=== PATIENT | male | born 1970 | race Caucasian/White ===

== ENCOUNTER 2017-02-13 02:29 | Emergency (ER) | payer MEDICAID ==
[~2017-02-13] VITALS: Ht 170.2 cm; Wt 90.5 kg
[2017-02-13 02:37] VITALS: Ht 170.2 cm; Wt 90.5 kg
[2017-02-13] MEDS ORDERED: ALBUTEROL 0.083% (NEB) 2.5 MG/3 ML AMP HHN STA (04:11)
[2017-02-13] MEDS ORDERED: IPRATROPIUM (NEB) 0.5 MG/2.5 ML AMP HHN ONE (04:30)
[2017-02-13] MEDS ORDERED: DEXAMETHASONE 10 MG/ML 1 ML INJ IM ONE (04:30)
[2017-02-13] MEDS ORDERED: DIPHENHYDRAMINE 50 MG INJ IM ONE (04:30)
--- NOTE | 2017-02-13 04:53 | ERD ---
ER Documentation Chief Complaint Date/Time DATE: 02/13/17 TIME: 04:49 Chief Complaint sore throat and cough x 1 day HPI This patient is a 46-year-old male presenting to the emergency department with complaints of cough and sore throat for 1 day. Symptoms are worsening. Additionally the patient complains of rash and some mild shortness of breath and wheezing after taking a first dose of Tamiflu earlier this evening. He denies chest pain, respiratory distress, significant fever, nausea, vomiting, diarrhea, or other symptoms. Symptoms are currently mild in severity. ROS All systems reviewed and are negative except as per history of present illness. Medications Home Meds Active Scripts Ibuprofen* (Motrin*) 600 Mg Tab, 600 MG PO Q6, #30 TAB Prov:PAU VELAZQUEZ PA-C 02/13/17 Prednisone* (Prednisone*) 20 Mg Tab, 40 MG PO DAILY for 4 Days, #8 TAB Prov:PAU VELAZQUEZ PA-C 02/13/17 Diphenhydramine Hcl* (Benadryl*) 25 Mg Cap, 25 MG PO Q6, #30 CAP Prov:PAU VELAZQUEZ PA-C 02/13/17 Allergies Allergies: Coded Allergies: No Known Allergy (Unverified , 05/28/12) PMhx/Soc History of Surgery: No Anesthesia Reaction: No Hx Neurological Disorder: No Hx Respiratory Disorders: No Hx Cardiac Disorders: No Hx Psychiatric Problems: No Hx Miscellaneous Medical Probl: No Hx Alcohol Use: Yes (OCCASIONAL) Hx Substance Use: No Hx Tobacco Use: Yes (DAILY) Smoking Status: Current every day smoker Physical Exam Vitals Vital Signs Date Time Temp Pulse Resp B/P Pulse Ox O2 Delivery O2 Flow Rate FiO2 02/13/17 05:12 100.9 02/13/17 04:21 106 18 97 21 02/13/17 02:37 99.6 111 18 145/99 95 Physical Exam Const: Nontoxic, well-appearing male in no acute distress. Head: Atraumatic Eyes: Normal Conjunctiva ENT: Normal External Ears, Nose and Mouth. There is erythema to the posterior pharynx but no tonsillar hypertrophy, exudate, or swelling. The airway is clear. Neck: Full range of motion..~ No meningismus. Resp: Shallow inspiratory effort. Mild rhonchi noted to bilateral upper lung ely. No definite wheezing. No crackles noted. Cardio: Regular rate and rhythm, no murmurs Abd: Soft, non tender, non distended. Normal bowel sounds Skin: There is a mild macular papular rash scattered to the bilateral upper extremities. Back: No midline or flank tenderness Ext: No cyanosis, or edema Neur: Awake and alert Psych: Normal Mood and Affect Results 24 hrs Current Medications Medications (Trade) Dose Ordered Sig/Maryann Route PRN Reason Start Time Stop Time Status Last Admin Dose Admin Albuterol (Proventil 0.083% (Neb)) 5 mg ONCE STAT HHN 02/13/17 04:11 02/13/17 04:14 DC 02/13/17 04:21 Ipratropium [place] (Atrovent 0.02% (Neb)) 0.5 mg ONCE ONCE HHN 02/13/17 04:30 02/13/17 04:31 DC 02/13/17 04:21 Dexamethasone (Decadron) 10 mg ONCE ONCE IM 02/13/17 04:30 02/13/17 04:31 DC 02/13/17 04:21 Diphenhydramine HCl (Benadryl) 25 mg ONCE ONCE IM 02/13/17 04:30 02/13/17 04:31 DC 02/13/17 04:21 Ibuprofen (Motrin) 600 mg ONCE ONCE PO 02/13/17 05:30 02/13/17 05:31 DC 02/13/17 05:23 [place] [id number] Radiology Main Line: [phone] DIAGNOSTIC IMAGING REPORT Patient: BRANDON GUTIERREZ : 1970 Age: 46 Sex: M MR #: [id number] DOS: 02/13/17 0000 Ordering MD: PAU VELAZQUEZ PA-C Location: [facility] Room/Bed: PROCEDURE: Chest. CLINICAL INDICATION: Cough. TECHNIQUE: Single frontal view of the chest was obtained. COMPARISON: None. FINDINGS: The cardiac silhouette is within normal limits. The aortic arch is unremarkable. There is no focal consolidation, vascular congestion or pleural effusion. There is no pneumothorax. IMPRESSION: No evidence for active cardiopulmonary disease. .Sam Wen MD, MD Date Time Electronically viewed and signed by .Sam Wen MD, MD on 02/13/2017 05:02 .T/ CC: PAU VELAZQUEZ PA-C Procedures/MDM 46-year-old male presents to the emergency department with complaints of rash, sore throat, shortness of breath after taking Tamiflu earlier today. On physical examination the patient does have shallow inspiratory effort and pulse ox is 95% on room air. The patient is showing no signs of acute respiratory distress. There are no retractions or cyanosis noted. Chest x-ray showed no abnormalities. The patient improved in the emergency department after IM Benadryl, IM Decadron, and medication nebulizer. The patient's primary diagnosis is shortness of breath. Secondary diagnosis is rash. Close follow- up with primary care physician was advised. Strict ER return precautions were discussed. The patient was stable for outpatient management with a prescription for prednisone, ibuprofen, and diphenhydramine. Departure Diagnosis: Primary Impression: Shortness of breath Additional Impression: Rash and nonspecific skin eruption Condition: Fair PAU VELAZQUEZ PA-C Feb 13, 2017 04:53
--- NOTE | 2017-02-13 05:03 | RADRPT ---
PROCEDURE: Chest. CLINICAL INDICATION: Cough. TECHNIQUE: Single frontal view of the chest was obtained. COMPARISON: None. FINDINGS: The cardiac silhouette is within normal limits. The aortic arch is unremarkable. There is no focal consolidation, vascular congestion or pleural effusion. There is no pneumothorax. IMPRESSION: No evidence for active cardiopulmonary disease. .Sam Wen MD, MD Date Time Electronically viewed and signed by .Sam Wen MD, on 02/13/2017 05:02 .T/
[2017-02-13 05:12] VITALS: TEMP 100.9
[2017-02-13] MEDS ORDERED: IBUPROFEN 600 MG TAB PO ONE (05:30)
[2017-02-13] MEDS ORDERED: IBUP-1542 PO (05:35)
[2017-02-13] MEDS ORDERED: BEN25 PO (05:35)
[2017-02-13] MEDS ORDERED: PRED20TA PO (05:35)
== END 2017-02-13 05:54 | disposition home or self-care (01) ==
LOC: FTE 02:29
DX: R06.02 Shortness of breath (principal); R21 Rash and other nonspecific skin eruption; F17.210 Nicotine dependence, cigarettes, uncomplicated
CPT/HCPCS: 71010; 94664; 96372; J1100; J1200; Z7502; Z7610

== ENCOUNTER 2017-05-22 23:19 | Emergency (ER) | payer MEDICAID ==
[~2017-05-22] VITALS: Ht 170.2 cm; Wt 83.0 kg
[~2017-05-22 23:19] MED LIST: BEN25 PO; IBUP-1542 PO; PRED20TA PO
[2017-05-22 23:28] VITALS: Ht 170.2 cm; Wt 83.0 kg
[2017-05-23] MEDS ORDERED: BEN50 PO (02:35)
[2017-05-23] MEDS ORDERED: AZIT250T94 PO (02:35)
[2017-05-23 02:43] VITALS: PULSE 79; RESP 18
--- NOTE | 2017-05-23 03:33 | ERD ---
ER Documentation Chief Complaint Date/Time DATE: 05/23/17 TIME: 03:31 Chief Complaint PT reports hivews after taking amoxicillin HPI 46-year-old male presents to emergency department for complaints of rash all over the body and itching after taking amoxicillin today. Patient was being treated for acute bacterial pharyngitis with amoxicillin. Patient does not have any lip swelling, tongue swelling or stridor. Patient does not have any shortness of breath or wheezing. Patient is complaining of sore throat burning pain 4/10 scale, as was upon swallowing. Patient denies any stridor. ROS All systems reviewed and are negative except as per history of present illness. Medications Home Meds Active Scripts Diphenhydramine Hcl* (Benadryl*) 50 Mg Cap, 50 MG PO Q6H Y for ITCHING/RASH, # 30 CAP Prov:YIMI GREER NP 05/23/17 Azithromycin* (Zithromax*) 250 Mg Tablet, 250 MG PO .ZPACK DIRECTED, #6 TAB TAKE 500 MG (2 TABS) THE FIRST DAY THEN 250 MG (1 TAB) DAYS 2-5 Prov:YIMI GREER NP 05/23/17 Ibuprofen* (Motrin*) 600 Mg Tab, 600 MG PO Q6, #30 TAB Prov:PAU VELAZQUEZ PA-C 02/13/17 Prednisone* (Prednisone*) 20 Mg Tab, 40 MG PO DAILY for 4 Days, #8 TAB Prov:PAU VELAZQUEZ PA-C 17 Diphenhydramine Hcl* (Benadryl*) 25 Mg Cap, 25 MG PO Q6, #30 CAP Prov:PAU VELAZQUEZ PA-C 02/13/17 Allergies Allergies: Coded Allergies: No Known Allergy (Unverified , 05/28/12) PMhx/Soc Medical and Surgical Hx: pt denies Medical Hx, pt denies Surgical Hx History of Surgery: No Anesthesia Reaction: No Hx Neurological Disorder: No Hx Respiratory Disorders: No Hx Cardiac Disorders: No Hx Psychiatric Problems: No Hx Miscellaneous Medical Probl: No Hx Alcohol Use: Yes (OCCASIONAL) Hx Substance Use: No Hx Tobacco Use: Yes (DAILY) Smoking Status: Current every day smoker FmHx Family History: No coronary disease, No diabetes, No other Physical Exam Vitals Vital Signs Date Time Temp Pulse Resp B/P Pulse Ox O2 Delivery O2 Flow Rate FiO2 05/23/17 02:43 79 18 99 Room Air 05/22/17 23:28 99.1 119 18 128/83 96 Physical Exam GENERAL: The patient is well developed and appropriate for usual state of health, in no apparent distress. HEENT: Atraumatic. Ears: Normal tympanic membrane, no erythema or bulging. No ear canal swelling. No ear discharge. Nose: normal nasal turbinates, no erythema or swelling. Normal nasal discharge. Throat: oropharynx e erythematous with tonsillar swelling and tonsillar exudates noted. No lymphadenopathy. CHEST: Clear to auscultation bilaterally. There are no rales, wheezes or rhonchi. HEART: Regular rate and rhythm. No murmurs, clicks, rubs or gallops. No S3 or S4. ABDOMEN: Soft, nontender and nondistended. Good bowel sounds. No rebound or guarding. No gross peritonitis. No gross organomegaly or masses. No Lainez sign or McBurney point tenderness. BACK: No midline or flank tenderness. EXTREMITIES: Equal pulses bilaterally. There is no peripheral clubbing, cyanosis or edema. No focal swelling or erythema. Full range of motion. Grossly neurovascularly intact. NEURO: Alert and oriented. Cranial nerves 2-12 intact. Motor strength in all 4 extremities with 5/5 strength. Sensation grossly intact. Normal speech and gait. SKIN: There is no apparent rash or petechia. The skin is warm and dry. HEMATOLOGIC AND LYMPHATIC: There is no evidence of excessive bruising or lymphedema. No gross cervical, axillary, or inguinal lymphadenopathy. Procedures/MDM Medical decision making: Patient symptoms is likely consistent with acute bacterial pharyngitis, most likely strep throat. Low suspicion for peritonsillar abscess, mononucleosis, no symptoms of epiglottitis, laryngitis. No oral airway obstruction noted. No symptoms of sepsis at this time. Patient appears well and is hemodynamically stable. Patient was given for azithromycin is advised to follow-up with primary care doctor in 2-3 days for reevaluation of symptoms. Patient is advised to do salt water gargles. Patient is advised to return to emergency department for worsening symptoms. For his hives, patient was given Benadryl, was advised to stop amoxicillin. Disposition: Home. Stable. Disclaimer: Inadvertent spelling and grammatical errors are likely due to EHR/ dictation software use and do not reflect on the overall quality of patient care. Also, please note that the electronic time recorded on this note does not necessarily reflect the actual time of the patient encounter. Departure Diagnosis: Primary Impression: Acute bacterial pharyngitis Additional Impression: Hives Condition: Stable Patient Instructions: YIMI Quach NP May 23, 2017 03:33
== END 2017-05-23 02:43 | disposition home or self-care (01) ==
LOC: FTE 23:19
DX: J02.9 Acute pharyngitis, unspecified (principal); L50.9 Urticaria, unspecified; F17.210 Nicotine dependence, cigarettes, uncomplicated
CPT/HCPCS: 99283

== ENCOUNTER 2017-08-06 17:20 | Emergency (ER) | payer MEDICAID ==
[~2017-08-06] VITALS: Wt 93.6 kg
[~2017-08-06 17:20] MED LIST changes: +AZIT250T94 PO; +BEN50 PO
[2017-08-06] MEDS ORDERED: KETOROLAC 30 MG INJ IM STA (18:15)
[2017-08-06 18:24] LABS: URINE BLOOD (Dip) POC Negative (NEGATIVE)
--- NOTE | 2017-08-06 19:38 | ERD ---
ER Documentation Chief Complaint Chief Complaint BACK PAIN HPI This a 47-year-old male who presents emergency department today complaining of back pain for the past 4 days. 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 States that he has had back pain one time in the past. States he has taken Tylenol and ibuprofen with limited relief in symptoms. Denies any fevers or chills, dysuria or hematuria. Denies any loss of bowel or bladder control. Denies any specific trauma. ROS All systems reviewed and are negative except as per history of present illness. Medications Home Meds Active Scripts Cyclobenzaprine Hcl* (Cyclobenzaprine Hcl*) 10 Mg Tablet, 10 MG PO QHS, #7 TAB Prov:ANGIE MONTEMAYOR PA-C 08/06/17 Naproxen* (Naprosyn*) 500 Mg Tablet, 500 MG PO BID Y for PAIN AND/OR INFLAMMATION, #30 TAB Prov:ANGIE MONTEMAYOR PA-C 08/06/17 Tramadol HCl (Tramadol HCl) 50 Mg Tablet, 50 MG PO Q4 Y for PAIN, #20 TAB Prov:ANGIE MONTEMAYOR PA-C 08/06/17 Diphenhydramine Hcl* (Benadryl*) 50 Mg Cap, 50 MG PO Q6H Y for ITCHING/RASH, # 30 CAP Prov:YIMI GREER NP 05/23/17 Azithromycin* (Zithromax*) 250 Mg Tablet, 250 MG PO .ZPACK DIRECTED, #6 TAB TAKE 500 MG (2 TABS) THE FIRST DAY THEN 250 MG (1 TAB) DAYS 2-5 Prov:YIMI GREER NP 05/23/17 Ibuprofen* (Motrin*) 600 Mg Tab, 600 MG PO Q6, #30 TAB Prov:PAU VELAZQUEZ PA-C 02/13/17 Prednisone* (Prednisone*) 20 Mg Tab, 40 MG PO DAILY for 4 Days, #8 TAB Prov:PAU VELAZQUEZ PA-C 02/13/17 Diphenhydramine Hcl* (Benadryl*) 25 Mg Cap, 25 MG PO Q6, #30 CAP Prov:PAU VELAZQUEZ PA-C 02/13/17 Allergies Allergies: Coded Allergies: No Known Allergy (Unverified , 05/28/12) PMhx/Soc Medical and Surgical Hx: pt denies Medical Hx, pt denies Surgical Hx History of Surgery: No Anesthesia Reaction: No Hx Neurological Disorder: No Hx Respiratory Disorders: No Hx Cardiac Disorders: No Hx Psychiatric Problems: No Hx Miscellaneous Medical Probl: No Hx Alcohol Use: Yes (OCCASIONAL) Hx Substance Use: No Hx Tobacco Use: Yes (DAILY) Smoking Status: Current every day smoker Physical Exam Vitals Vital Signs Date Time Temp Pulse Resp B/P Pulse Ox O2 Delivery O2 Flow Rate FiO2 08/06/17 17:35 98.9 83 18 134/75 99 Physical Exam Const: NAD Head: Atraumatic Eyes: Normal Conjunctiva ENT: Normal External Ears, Nose and Mouth. Neck: Full range of motion..~ No meningismus. Resp: Clear to auscultation bilaterally Cardio: Regular rate and rhythm, no murmurs Abd: Soft, non tender, non distended. Normal bowel sounds Skin: No petechiae or rashes Back: Lumbar thoracic spine no midline tenderness. Bilateral paraspinal tenderness. No CVA tenderness. 2+. Distal neurovascularly intact. Ext: No cyanosis, or edema Neur: Awake and alert Psych: Normal Mood and Affect Results 24 hrs Laboratory Tests Test 08/06/17 18:26 Bedside Urine pH (LAB) 6.0 Bedside Urine Protein (LAB) Negative Bedside Urine Glucose (UA) Negative Bedside Urine Ketones (LAB) Negative Bedside Urine Blood Negative Bedside Urine Nitrite (LAB) Negative Bedside Urine Leukocyte Esterase (L Negative Current Medications Medications (Trade) Dose Ordered Sig/Maryann Route PRN Reason Start Time Stop Time Status Last Admin Dose Admin Ketorolac Tromethamine (Toradol) 30 mg ONCE STAT IM 08/06/17 18:15 08/06/17 18:16 DC 08/06/17 19:24 Procedures/MDM This is a 47-year-old male who presents to the emergency department today complaining of back pain the past 4 days patient has no midline tenderness and he is only had symptoms for 4 days and I do not feel that he requires imaging at this time. Denies any specific trauma.. Low suspicion for acute fracture or dislocation. Patient is afebrile and otherwise well-appearing. They have no loss of bowel or bladder control. Low suspicion for cauda equina or abscess. UA is negative for infection or hematuria. Low suspicion for nephrolithiasis or pyelonephritis. Patient was given Toradol here in the emergency department and pain improved. Patient will be given a prescription for tramadol, Naprosyn, Flexeril for home At this time the patient is stable for discharge and outpatient management. Patient should follow up with their PCP in the next 1-2 days. They may return to the emergency department sooner for any persistent or worsening of symptoms. Patient understood and agreed with the plan. Departure Diagnosis: Primary Impression: Back pain Back pain location: low back pain Chronicity: acute Back pain laterality: bilateral Sciatica presence: without sciatica Qualified Code: M54.5 - Acute bilateral low back pain without sciatica Condition: ANGIE Oscar PA-C Aug 06, 2017 19:38
[2017-08-06] MEDS ORDERED: TRAM50TA2 PO (19:40)
[2017-08-06] MEDS ORDERED: CYCL-319 PO (19:41)
[2017-08-06] MEDS ORDERED: NAPR-260 PO (19:41)
== END 2017-08-06 19:53 | disposition home or self-care (01) ==
LOC: FTE 17:20
DX: M54.5 Low back pain (principal); F17.210 Nicotine dependence, cigarettes, uncomplicated
CPT/HCPCS: 81003; 96372; J1885; Z7502

== ENCOUNTER 2017-09-07 15:28 | Emergency (ER) | END 2017-09-07 16:32 | disposition home or self-care (01) ==